=== PATIENT | female | born 1945 | race Caucasian/White ===

== ENCOUNTER 2024-05-03 10:58 | Inpatient (IN) | payer MEDICARE ==
[2024-05-03] MEDS: ROTIGOTINE TOP SCH (21:00)
[2024-05-03] MEDS: Gabapentin 400 MG CAP PO SCH (21:01)
[2024-05-03] MEDS: Acetaminophen 325 MG TAB PO PRN (21:02)
[2024-05-03] MEDS: Carvedilol 3.125 MG TAB PO SCH (21:27)
[2024-05-04] MEDS: Acetaminophen/Codeine 30-300mg Tablet PO PRN (06:01)
[2024-05-04] MEDS: Levothyroxine Sodium 50 MCG TAB PO SCH (06:03)
[2024-05-04 06:10] LABS: #Eosinphils 0.3 thou/uL (0.0-0.7); #Lymphocytes 0.9 thou/uL (1.20-3.40); #Monocytes 0.5 thou/uL (0.11-0.59); #Neutrophils 2.7 thou/uL (1.40-6.50); %Basophils 0.9 % (0.0-1.0); %Eosinophils 7.1 % (0.0-10.0); %Lymphocytes 19.8 % (21.0-51.0); %Monocytes 11.4 % (0.0-10.0); %Neutrophils 60.9 % (42.0-75.0); Hematocrit 25.8 % (36.0-47.0); Mean Corpuscular HGB CONC 30.8 g/dL (32.0-36.0); Mean Corpuscular Hemoglobin 27.5 pg (27.0-31.0); Mean Corpuscular Volume 89.2 fl (78.0-98.0); Mean Platelet Volume 8.5 fL (7.4-10.4); Platelet Count 144 10x3/uL (130-400); RBC Distribution Width 15.8 % (11.5-14.5); Red Blood Cell (RBC) Count 2.89 mill/uL (4.20-5.40); White Blood Cell (WBC) Count 4.4 10x3/uL (4.8-10.8)
[2024-05-04 06:18] LABS: Vancomycin, Random 19.2 ug/mL (See Comment)
[2024-05-04 06:20] LABS: ALT (SGPT) Less than 7 U/L (8-55); AST (SGOT) 11 U/L (5-34); Albumin 2.5 g/dL (3.4-4.8); Alkaline Phosphatase 70 U/L (40-110); Anion Gap 14 mmol/L (10-20); BUN (Urea Nitrogen) 17 mg/dL (9.8-20.1); Bilirubin, Total 0.4 mg/dL (0.2-1.2); Calc. Creatinine Clearance 53 mL/min (70-130); Calcium 9.2 mg/dL (7.8-10.44); Carbon Dioxide 23 mmol/L (23-31); Chloride 104 mmol/L (98-107); Estimated GFR 38; Globulin 3.9 g/dL (2.4-3.5); Glucose 98 mg/dL (83-110); Protein, Total 6.4 g/dL (5.8-8.1); Sodium 137 mmol/L (136-145)
[2024-05-04] MEDS: Rifampin 300 MG CAP PO SCH (08:24)
[2024-05-04] MEDS: Losartan 25 MG TAB PO SCH (08:24)
[2024-05-04] MEDS: Pantoprazole DR 40 MG TAB PO SCH (08:24)
[2024-05-04] MEDS: rOPINIRole HCl 1 MG TAB PO SCH (08:24)
[2024-05-04] MEDS: Escitalopram Oxalate 10 mg Tablet PO SCH (08:24)
[2024-05-04] MEDS: CO Q-10 CAPSULE 50 MG PO SCH (08:25)
[2024-05-04] MEDS: Aspirin 81 mg Enteric Coated Tablet PO SCH (08:25)
[2024-05-04] MEDS: hydrALAZINE 25 MG TAB PO SCH (08:25)
[2024-05-04] MEDS: Meloxicam 7.5 MG TAB PO SCH (08:26)
[2024-05-04] MEDS: Rosuvastatin 10 MG TAB PO SCH (08:27)
[2024-05-04] MEDS: Furosemide 20 MG TAB PO SCH (08:27)
[2024-05-04] MEDS: Amlodipine 5 MG TAB PO SCH (08:27)
[2024-05-04] MEDS: Potassium Chloride 10 MEQ TAB PO SCH (08:28)
[2024-05-04] MEDS: Clopidogrel Bisulfate 75 MG TAB PO SCH (08:28)
[2024-05-04] MEDS: Polyethylene Glycol 3350 17 GM Packet PO SCH (08:36)
[2024-05-04] MEDS: MECOBALAMIN 1000 MCG PO SCH (08:38)
[2024-05-04] MEDS ORDERED: Gabapentin 400 MG CAP PO SCH (09:00)
[2024-05-04] MEDS ORDERED: Furosemide 40 MG TAB PO SCH (09:00)
[2024-05-04] MEDS: Carvedilol 3.125 MG TAB PO SCH ×2 (09:14→16:50)
[2024-05-04] MEDS: Vancomycin HCl 500 MG in Sodium Chloride 0.9% 100 ML IVPB SCH (14:23)
[2024-05-04] MEDS ORDERED: Vancomycin HCl 500 MG VIAL IVPB SCH (15:00)
[2024-05-04] MEDS: Nystatin Powder 15 GM BOT TOP PRN (16:51)
[2024-05-04] MEDS: Nitroglycerin 0.4 MG TAB (25 Tab Bottle) ONE (18:16)
[2024-05-04] MEDS: Ondansetron ODT 4 MG TAB SL PRN (18:24)
[2024-05-04 18:42] LABS: Troponin I 0.026 ng/mL (< 0.028)
[2024-05-04] MEDS: Ondansetron PF 4 MG/2 ML Vial IVP SCH (19:08)
[2024-05-04] MEDS: fentaNYL 50 mcg/mL 1 mL Vial SLOW IVP SCH (19:09)
[2024-05-04] MEDS: Mag-Al Plus 1200/1200/120 MG (30 mL) UDCUP PO SCH (19:57)
[2024-05-04] MEDS: Lidocaine Viscous Sol 2% 15 ml UD Cup SSW SCH (19:58)
[2024-05-04 23:11] LABS: Troponin I 0.029 ng/mL (< 0.028)
[2024-05-05 06:07] LABS: Vancomycin, Random 19.8 ug/mL (See Comment)
[2024-05-05] MEDS ORDERED: Vancomycin HCl 500 MG in Sodium Chloride 0.9% 100 ML IVPB SCH ×4 (13:00→18:00)
[2024-05-05 14:39] LABS: Anion Gap 16 mmol/L (10-20); BUN (Urea Nitrogen) 22 mg/dL (9.8-20.1); Calc. Creatinine Clearance 31 mL/min (70-130); Calcium 9.2 mg/dL (7.8-10.44); Carbon Dioxide 22 mmol/L (23-31); Chloride 102 mmol/L (98-107); Estimated GFR 20; Glucose 115 mg/dL (83-110); Potassium 4.6 mmol/L (3.5-5.1); Sodium 135 mmol/L (136-145)
[2024-05-05 18:19] LABS: Vancomycin, Trough 17.3 ug/mL
[2024-05-05] MEDS: Vancomycin HCl 500 MG in Sodium Chloride 0.9% 100 ML IVPB SCH (20:16)
[2024-05-06] MEDS: Senokot S 8.6-50 MG TAB PO PRN (07:47)
[2024-05-06] MEDS: Bisacodyl 5 MG TAB PO SCH (10:23)
[2024-05-06] MEDS ORDERED: Vancomycin HCl 500 MG in Sodium Chloride 0.9% 100 ML IVPB SCH (12:15)
[2024-05-06] MEDS ORDERED: VANCOMYCIN IVPB SCH (13:30)
[2024-05-06 21:15] LABS: Vancomycin, Trough 17.3 ug/mL
[2024-05-06] MEDS: Vancomycin HCl 500 MG in Sodium Chloride 0.9% 100 ML IVPB SCH (22:01)
[2024-05-07 05:25] LABS: Anion Gap 15 mmol/L (10-20); BUN (Urea Nitrogen) 25 mg/dL (9.8-20.1); Calc. Creatinine Clearance 33 mL/min (70-130); Calcium 9.1 mg/dL (7.8-10.44); Carbon Dioxide 22 mmol/L (23-31); Chloride 104 mmol/L (98-107); Estimated GFR 22; Glucose 111 mg/dL (83-110); Potassium 4.5 mmol/L (3.5-5.1); Sodium 136 mmol/L (136-145)
[2024-05-07] MEDS: Sterile Water 10 ML VIAL IVP SCH (11:36)
[2024-05-07] MEDS: Activase 2 MG VIAL CATH SCH (11:36)
[2024-05-07 21:26] LABS: Vancomycin, Trough 17.6 ug/mL
[2024-05-07] MEDS: Vancomycin HCl 500 MG in Sodium Chloride 0.9% 100 ML IVPB SCH (22:12)
[2024-05-08 05:34] LABS: #Basophils 0.1 thou/uL (0.0-0.2); #Eosinphils 0.4 thou/uL (0.0-0.7); #Lymphocytes 0.9 thou/uL (1.20-3.40); #Monocytes 0.6 thou/uL (0.11-0.59); #Neutrophils 2.9 thou/uL (1.40-6.50); %Basophils 1.3 % (0.0-1.0); %Eosinophils 8.2 % (0.0-10.0); %Lymphocytes 18.1 % (21.0-51.0); %Monocytes 12.2 % (0.0-10.0); %Neutrophils 60.2 % (42.0-75.0); Hematocrit 25.4 % (36.0-47.0); Hemoglobin 7.9 g/dL (12.0-16.0); Mean Corpuscular HGB CONC 31.1 g/dL (32.0-36.0); Mean Corpuscular Hemoglobin 27.6 pg (27.0-31.0); Mean Corpuscular Volume 88.6 fl (78.0-98.0); Mean Platelet Volume 8.1 fL (7.4-10.4); Platelet Count 169 10x3/uL (130-400); RBC Distribution Width 15.7 % (11.5-14.5); Red Blood Cell (RBC) Count 2.87 mill/uL (4.20-5.40); White Blood Cell (WBC) Count 4.8 10x3/uL (4.8-10.8)
[2024-05-08 05:52] LABS: Anion Gap 14 mmol/L (10-20); BUN (Urea Nitrogen) 23 mg/dL (9.8-20.1); Calc. Creatinine Clearance 48 mL/min (70-130); Calcium 9.4 mg/dL (7.8-10.44); Carbon Dioxide 22 mmol/L (23-31); Chloride 104 mmol/L (98-107); Estimated GFR 32; Glucose 106 mg/dL (83-110); Potassium 4.2 mmol/L (3.5-5.1); Sodium 136 mmol/L (136-145)
[2024-05-08] MEDS: Docusate 100 MG CAP PO SCH (21:28)
[2024-05-08 21:47] LABS: Vancomycin, Trough 18.3 ug/mL
[2024-05-08] MEDS: Vancomycin HCl 500 MG in Sodium Chloride 0.9% 100 ML IVPB SCH (23:02)
[2024-05-08] MEDS: hydrALAZINE 25 MG TAB PO PRN (23:02)
[2024-05-09 06:37] LABS: #Basophils 0.1 thou/uL (0.0-0.2); #Eosinphils 0.4 thou/uL (0.0-0.7); #Lymphocytes 0.9 thou/uL (1.20-3.40); #Monocytes 0.6 thou/uL (0.11-0.59); #Neutrophils 2.7 thou/uL (1.40-6.50); %Basophils 1.9 % (0.0-1.0); %Eosinophils 8.8 % (0.0-10.0); %Lymphocytes 18.6 % (21.0-51.0); %Monocytes 12.2 % (0.0-10.0); %Neutrophils 58.6 % (42.0-75.0); Mean Corpuscular HGB CONC 30.7 g/dL (32.0-36.0); Mean Corpuscular Hemoglobin 27.2 pg (27.0-31.0); Mean Corpuscular Volume 88.7 fl (78.0-98.0); Mean Platelet Volume 7.5 fL (7.4-10.4); Platelet Count 204 10x3/uL (130-400); RBC Distribution Width 15.8 % (11.5-14.5); Red Blood Cell (RBC) Count 2.93 mill/uL (4.20-5.40); White Blood Cell (WBC) Count 4.6 10x3/uL (4.8-10.8)
[2024-05-09 06:50] LABS: Anion Gap 14 mmol/L (10-20); BUN (Urea Nitrogen) 22 mg/dL (9.8-20.1); Calc. Creatinine Clearance 53 mL/min (70-130); Calcium 9.6 mg/dL (7.8-10.44); Carbon Dioxide 24 mmol/L (23-31); Chloride 105 mmol/L (98-107); Estimated GFR 37; Glucose 103 mg/dL (83-110); Potassium 4.4 mmol/L (3.5-5.1); Sodium 139 mmol/L (136-145)
[2024-05-09] MEDS: traMADol HCl 50 MG TAB PO SCH (09:26)
[2024-05-09] MEDS: Cyclobenzaprine 10 MG TAB PO PRN (21:54)
[2024-05-09] MEDS: hydrALAZINE 25 MG TAB PO SCH (21:55)
[2024-05-09] MEDS: Vancomycin HCl 500 MG in Sodium Chloride 0.9% 100 ML IVPB SCH (21:55)
[2024-05-10 07:00] LABS: Vancomycin, Random 20.9 ug/mL (See Comment)
[2024-05-10] MEDS: Losartan 25 MG TAB PO SCH (08:50)
[2024-05-11 06:16] LABS: ALT (SGPT) 7 U/L (8-55); AST (SGOT) 9 U/L (5-34); Albumin 2.8 g/dL (3.4-4.8); Alkaline Phosphatase 66 U/L (40-110); Anion Gap 15 mmol/L (10-20); BUN (Urea Nitrogen) 22 mg/dL (9.8-20.1); Bilirubin, Total 0.3 mg/dL (0.2-1.2); Calc. Creatinine Clearance 52 mL/min (70-130); Calcium 9.5 mg/dL (7.8-10.44); Carbon Dioxide 23 mmol/L (23-31); Chloride 106 mmol/L (98-107); Estimated GFR 35; Globulin 3.9 g/dL (2.4-3.5); Glucose 101 mg/dL (83-110); Potassium 4.5 mmol/L (3.5-5.1); Protein, Total 6.7 g/dL (5.8-8.1); Sodium 139 mmol/L (136-145)
[2024-05-11 07:49] LABS: #Basophils 0.05 10x3/uL (0.0-0.2); #Eosinphils 0.41 10x3/uL (0.0-0.5); #Monocytes 0.56 10x3/uL (0.0-1.1); #Neutrophils 2.38 10x3/uL (1.5-8.4); %Basophils 1.1 % (0.0-2.0); %Eosinophils 9.4 % (0.0-6.0); %Lymphocytes 21.7 % (18.0-47.0); %Monocytes 12.8 % (0.0-10.0); %Neutrophils 54.5 % (40.0-75.0); Hemoglobin 8.2 g/dL (12.0-15.5); Mean Corpuscular HGB CONC 31.5 g/dL (32.0-36.0); Mean Corpuscular Hemoglobin 29.7 pg (27.0-33.0); Mean Corpuscular Volume 94.2 fL (81.6-98.3); Mean Platelet Volume 10.6 fL (7.4-10.4); Platelet Count 238 10x3/uL (150-450); RBC Distribution Width 17.5 % (11.5-14.5); Red Blood Cell (RBC) Count 2.76 10x6/uL (3.90-5.03); White Blood Cell (WBC) Count 4.4 10x3/uL (3.5-10.5)
[2024-05-11] MEDS: Furosemide 20 MG TAB PO SCH (11:51)
[2024-05-11] MEDS: Furosemide 40 MG TAB PO SCH (14:51)
[2024-05-12] MEDS: Furosemide 20 MG TAB PO SCH (15:13)
[2024-05-13 06:27] LABS: #Basophils 0.1 thou/uL (0.0-0.2); #Eosinphils 0.4 thou/uL (0.0-0.7); #Monocytes 0.6 thou/uL (0.11-0.59); #Neutrophils 2.2 thou/uL (1.40-6.50); %Eosinophils 8.6 % (0.0-10.0); %Lymphocytes 22.7 % (21.0-51.0); %Monocytes 14.4 % (0.0-10.0); %Neutrophils 52.3 % (42.0-75.0); Hematocrit 25.9 % (36.0-47.0); Hemoglobin 7.8 g/dL (12.0-16.0); Mean Corpuscular HGB CONC 30.2 g/dL (32.0-36.0); Mean Corpuscular Volume 89.2 fl (78.0-98.0); Mean Platelet Volume 6.7 fL (7.4-10.4); Platelet Count 213 10x3/uL (130-400); RBC Distribution Width 15.9 % (11.5-14.5); Red Blood Cell (RBC) Count 2.91 mill/uL (4.20-5.40); White Blood Cell (WBC) Count 4.2 10x3/uL (4.8-10.8)
[2024-05-13 06:36] LABS: Anion Gap 14 mmol/L (10-20); BUN (Urea Nitrogen) 22 mg/dL (9.8-20.1); Calc. Creatinine Clearance 50 mL/min (70-130); Calcium 9.4 mg/dL (7.8-10.44); Carbon Dioxide 25 mmol/L (23-31); Chloride 103 mmol/L (98-107); Estimated GFR 33; Glucose 102 mg/dL (83-110); Potassium 3.8 mmol/L (3.5-5.1); Sodium 138 mmol/L (136-145)
[2024-05-13] MEDS: Amlodipine 5 MG TAB PO SCH (11:29)
[2024-05-13] MEDS: Doxycycline 100 MG CAP PO SCH (20:57)
[2024-05-13] MEDS: ROTIGOTINE TOP SCH (20:59)
[2024-05-14] MEDS: Amlodipine 5 MG TAB PO SCH (08:56)
[2024-05-14] MEDS: Ferrous Sulfate 325 MG TAB PO SCH (08:58)
[2024-05-14] MEDS: rOPINIRole HCl 0.25 MG TAB PO SCH (09:00)
[2024-05-15 05:50] LABS: #Basophils 0.1 thou/uL (0.0-0.2); #Eosinphils 0.3 thou/uL (0.0-0.7); #Monocytes 0.6 thou/uL (0.11-0.59); #Neutrophils 2.4 thou/uL (1.40-6.50); %Eosinophils 7.8 % (0.0-10.0); %Lymphocytes 22.2 % (21.0-51.0); %Monocytes 14.3 % (0.0-10.0); %Neutrophils 53.8 % (42.0-75.0); Hematocrit 25.4 % (36.0-47.0); Mean Corpuscular HGB CONC 31.6 g/dL (32.0-36.0); Mean Corpuscular Hemoglobin 28.2 pg (27.0-31.0); Mean Corpuscular Volume 89.3 fl (78.0-98.0); Mean Platelet Volume 6.7 fL (7.4-10.4); Platelet Count 195 10x3/uL (130-400); RBC Distribution Width 15.8 % (11.5-14.5); Red Blood Cell (RBC) Count 2.84 mill/uL (4.20-5.40); White Blood Cell (WBC) Count 4.4 10x3/uL (4.8-10.8)
[2024-05-15 05:58] LABS: Anion Gap 13 mmol/L (10-20); BUN (Urea Nitrogen) 24 mg/dL (9.8-20.1); Calc. Creatinine Clearance 54 mL/min (70-130); Calcium 9.4 mg/dL (7.8-10.44); Carbon Dioxide 25 mmol/L (23-31); Chloride 104 mmol/L (98-107); Estimated GFR 39; Glucose 104 mg/dL (83-110); Potassium 4.1 mmol/L (3.5-5.1); Sodium 138 mmol/L (136-145)
[2024-05-16] MEDS ORDERED: Calcium Carbonate 500 MG ChewTAB PO PRN (07:46)
[2024-05-17] MEDS: hydrALAZINE 25 MG TAB PO SCH (20:36)
[2024-05-19] MEDS: Carvedilol 6.25 MG TAB PO SCH (21:20)
[2024-05-20 06:40] LABS: Anion Gap 15 mmol/L (10-20); BUN (Urea Nitrogen) 39 mg/dL (9.8-20.1); Calc. Creatinine Clearance 43 mL/min (70-130); Calcium 9.3 mg/dL (7.8-10.44); Carbon Dioxide 19 mmol/L (23-31); Chloride 106 mmol/L (98-107); Estimated GFR 29; Glucose 98 mg/dL (83-110); Potassium 4.3 mmol/L (3.5-5.1); Sodium 136 mmol/L (136-145)
[2024-05-20] MEDS: Carvedilol 6.25 MG TAB PO SCH (08:13)
[2024-05-20] MEDS: Carvedilol 3.125 MG TAB PO SCH (08:18)
[2024-05-20 09:47] LABS: #Basophils 0.1 thou/uL (0.0-0.2); #Eosinphils 0.3 thou/uL (0.0-0.7); #Monocytes 0.5 thou/uL (0.11-0.59); #Neutrophils 3.2 thou/uL (1.40-6.50); %Basophils 1.5 % (0.0-1.0); %Eosinophils 6.1 % (0.0-10.0); %Lymphocytes 19.7 % (21.0-51.0); %Monocytes 9.9 % (0.0-10.0); %Neutrophils 62.8 % (42.0-75.0); Hematocrit 29.7 % (36.0-47.0); Hemoglobin 9.1 g/dL (12.0-16.0); Mean Corpuscular HGB CONC 30.7 g/dL (32.0-36.0); Mean Corpuscular Hemoglobin 27.5 pg (27.0-31.0); Mean Corpuscular Volume 89.7 fl (78.0-98.0); Mean Platelet Volume 7.7 fL (7.4-10.4); Platelet Count 180 10x3/uL (130-400); RBC Distribution Width 15.8 % (11.5-14.5); Red Blood Cell (RBC) Count 3.31 mill/uL (4.20-5.40); White Blood Cell (WBC) Count 5.1 10x3/uL (4.8-10.8)
[2024-05-20] MEDS: Doxycycline 100 MG CAP PO SCH (20:58)
[2024-05-20] MEDS ORDERED: Docusate 100 MG CAP PO SCH (21:00)
[2024-05-22 05:23] LABS: Anion Gap 14 mmol/L (10-20); BUN (Urea Nitrogen) 45 mg/dL (9.8-20.1); Calc. Creatinine Clearance 41 mL/min (70-130); Calcium 9.4 mg/dL (7.8-10.44); Carbon Dioxide 23 mmol/L (23-31); Chloride 105 mmol/L (98-107); Estimated GFR 28; Glucose 99 mg/dL (83-110); Potassium 4.3 mmol/L (3.5-5.1); Sodium 138 mmol/L (136-145)
[2024-05-23] MEDS: Potassium Chloride 10 MEQ TAB PO SCH (08:06)
[2024-05-23] MEDS: Escitalopram Oxalate 10 mg Tablet PO SCH (08:08)
[2024-05-23] MEDS: Carvedilol 6.25 MG TAB PO SCH (17:51)
[2024-05-24 06:05] LABS: Anion Gap 13 mmol/L (10-20); BUN (Urea Nitrogen) 43 mg/dL (9.8-20.1); Calc. Creatinine Clearance 50 mL/min (70-130); Calcium 9.3 mg/dL (7.8-10.44); Carbon Dioxide 22 mmol/L (23-31); Chloride 107 mmol/L (98-107); Estimated GFR 35; Glucose 94 mg/dL (83-110); Potassium 4.1 mmol/L (3.5-5.1); Sodium 138 mmol/L (136-145)
[2024-05-24 07:43] VITALS: BMI 36.4
[2024-05-27 05:55] LABS: #Basophils 0.1 thou/uL (0.0-0.2); #Eosinphils 0.3 thou/uL (0.0-0.7); #Lymphocytes 0.9 thou/uL (1.20-3.40); #Monocytes 0.5 thou/uL (0.11-0.59); #Neutrophils 2.6 thou/uL (1.40-6.50); %Basophils 2.4 % (0.0-1.0); %Eosinophils 5.7 % (0.0-10.0); %Monocytes 11.8 % (0.0-10.0); Hemoglobin 8.3 g/dL (12.0-16.0); Mean Corpuscular HGB CONC 30.8 g/dL (32.0-36.0); Mean Corpuscular Hemoglobin 27.8 pg (27.0-31.0); Mean Corpuscular Volume 90.2 fl (78.0-98.0); Platelet Count 153 10x3/uL (130-400); RBC Distribution Width 15.4 % (11.5-14.5); White Blood Cell (WBC) Count 4.4 10x3/uL (4.8-10.8)
[2024-05-27 06:03] LABS: Anion Gap 15 mmol/L (10-20); BUN (Urea Nitrogen) 42 mg/dL (9.8-20.1); Calc. Creatinine Clearance 45 mL/min (70-130); Calcium 9.6 mg/dL (7.8-10.44); Carbon Dioxide 18 mmol/L (23-31); Chloride 108 mmol/L (98-107); Estimated GFR 32; Glucose 94 mg/dL (83-110); Potassium 4.4 mmol/L (3.5-5.1); Sodium 137 mmol/L (136-145)
[2024-05-28] MEDS: Amlodipine 10 MG TAB PO SCH (08:07)
[2024-05-28] MEDS: Losartan 50 MG TAB PO SCH (08:08)
[2024-05-29 19:43] VITALS: TEMP 98.3
[2024-05-30 03:33] VITALS: BMI 36.8
[2024-05-30 14:21] VITALS: BP 139/64
== END 2024-05-30 10:02 | disposition swing bed (61) | DRG 949 ==
LOC: NAV ACUTE 17:24
PROVIDERS: ADMIT Family Medicine; ATTEND Family Medicine
DX: T84.51XD Infection and inflammatory reaction due to internal right hip prosthesis, subsequent encounter (principal); M96.840 Postprocedural hematoma of a musculoskeletal structure following a musculoskeletal system procedure; N17.9 Acute kidney failure, unspecified; R53.81 Other malaise; I25.10 Atherosclerotic heart disease of native coronary artery without angina pectoris; E66.9 Obesity, unspecified; I12.9 Hypertensive chronic kidney disease with stage 1 through stage 4 chronic kidney disease, or unspecified chronic kidney disease; M19.90 Unspecified osteoarthritis, unspecified site; N18.32 Chronic kidney disease, stage 3b; E03.9 Hypothyroidism, unspecified; F32.9 Major depressive disorder, single episode, unspecified; G25.81 Restless legs syndrome; D63.1 Anemia in chronic kidney disease; Z96.641 Presence of right artificial hip joint; Z98.890 Other specified postprocedural states; Z88.0 Allergy status to penicillin; Z68.36 Body mass index [BMI] 36.0-36.9, adult
CPT/HCPCS: 36415; 80048; 80053; 80202; 82565; 83540; 84484; 85025; 86140; 97602; J2997; J3370; Q0162